=== PATIENT | male | born 1965 | race Caucasian/White ===

== ENCOUNTER 2017-02-24 20:46 | Inpatient (IN) | payer BC, OTHER ==
[~2017-02-24] VITALS: Ht 170.2 cm; Wt 104.7 kg
[2017-02-24] MEDS ORDERED: ASPIRIN 325 MG TAB PO STA (21:28)
[2017-02-24] MEDS ORDERED: NICARDipine HCL 30 MG CAPSULE PO ONE (21:30)
--- NOTE | 2017-02-24 21:39 | ERA ---
ER Documentation Chief Complaint Date/Time DATE: 02/24/17 TIME: 21:35 Chief Complaint CP that started 30 mins ago HPI This a 51-year-old male with a history of hypertension who came in for palpitations and tightness in his anterior neck bilaterally and trapezius area. The patient states that he was watching TV and his son gave him an iced coffee. After he drank this about 15 minutes later he began having the symptoms. The patient checked his blood pressure at home and was 190/110. He does admit to not taking his prescription medication like he should. He had no shortness of breath and no history of atrial fibrillation the said he had a irregular heartbeat 20 years ago which sounds like he was having PVCs. Currently he is asymptomatic after being put the ED room ROS All systems reviewed and are negative except as per history of present illness. Medications Home Meds No Active Prescriptions or Reported Meds Allergies Allergies: Coded Allergies: No Known Allergy (Unverified , 01/23/13) PMhx/Soc History of Surgery: No Anesthesia Reaction: No Hx Neurological Disorder: No Hx Respiratory Disorders: No Hx Cardiac Disorders: No Hx Psychiatric Problems: No Hx Miscellaneous Medical Probl: No Hx Alcohol Use: No Hx Substance Use: No Hx Tobacco Use: No FmHx Family History: No coronary disease Physical Exam Vitals Vital Signs Date Time Temp Pulse Resp B/P Pulse Ox O2 Delivery O2 Flow Rate FiO2 02/24/17 22:35 98.3 74 14 134/88 97 Room Air 02/24/17 20:49 98.7 90 16 187/94 99 Physical Exam Const: Well-developed, well-nourished Head: Atraumatic, normocephalic Eyes: Normal Conjunctiva, PERRLA, EOMI, normal sclera, no nystagmus ENT: Normal External Ears, Nose and Mouth, moist mucus membranes. Neck: Full range of motion. No meningismus, no lymphadenopathy. Resp: Clear to auscultation bilaterally, no wheezing, rhonchi, rales Cardio: Regular rate and rhythm, no murmurs, S1 S2 present Abd: Soft, non tender x 4, non distended. Normal bowel sounds, no guarding or rebound, no pulsitile abdominal masses or bruits Skin: No petechiae or rashes, no ecchymosis , no maculopapular rash Back: No midline or flank tenderness Ext: No cyanosis, or edema, FROM x 4, normal inspection, neurovascularly intact x 4 Neur: Awake and alert, STR 5/5 x 4, sensation intact x 4, no focal findings, cerebellum intact Psych: Normal Mood and Affect Result Diagram: 02/24/17214402/24/172144 Results 24 hrs Laboratory Tests Test 02/24/17 21:45 White Blood Count 8.610^3/ul Red Blood Count 5.0410^6/ul Hemoglobin 16.6g/dl Hematocrit 45.9% Mean Corpuscular Volume 91.1fl Mean Corpuscular Hemoglobin 32.9pg Mean Corpuscular Hemoglobin Concent 36.2g/dl Red Cell Distribution Width 12.2% Platelet Count 50949^3/UL Mean Platelet Volume 10.3fl Neutrophils % 42.1% Lymphocytes % 47.7% Monocytes % 7.0% Eosinophils % 2.4% Basophils % 0.7% Nucleated Red Blood Cells % 0.0/100WBC Neutrophils # (Manual) 3.610^3/ul Lymphocytes # 4.110^3/ul Monocytes # 0.610^3/ul Eosinophils # 0.210^3/ul Basophils # 0.110^3/ul Nucleated Red Blood Cells # 0.010^3/ul Sodium Level 144mmol/L Potassium Level 3.5mmol/L Chloride Level 105mmol/L Carbon Dioxide Level 27mmol/L Anion Gap 16 Blood Urea Nitrogen 13mg/dl Creatinine 1.02mg/dl Glucose Level 113mg/dl Calcium Level 9.6mg/dl Troponin I < 0.012ng/ml Current Medications Medications (Trade) Dose Ordered Sig/Humberto Route PRN Reason Start Time Stop Time Status Last Admin Dose Admin Aspirin (Aspirin) 325 mg ONCE STAT PO 02/24/17 21:28 02/24/17 21:30 DC 02/24/17 21:35 Nicardipine HCl (Cardene) 30 mg ONCE ONCE PO 02/24/17 21:30 02/24/17 21:31 DC 02/24/17 21:35 Procedures/MDM EKG: Rate/Rhythm: Atrial fibrillation with rapid ventricular responseQRS , ST, QT: NORMAL, QRS, QT] Impression: A. fib with RVR] EKG: Rate/Rhythm: Normal Sinus Rhythm,NL intervals QRS, ST, QT: NORMAL CT, QRS, QT] Impression: NORMAL EKG PROCEDURE: XR Chest. CLINICAL INDICATION: Chest pain TECHNIQUE: Single AP portable chest. COMPARISON: 10/04/2014 Chest x-ray FINDINGS: The cardiomediastinal silhouette is within normal limits of size. The lungs are clear without pleural effusion or focal consolidation. No pneumothorax. The osseous structures and soft tissues are unremarkable. IMPRESSION: 1. No evidence for active cardiopulmonary disease. RPTAT:AAJJ Derek Boyce Physician Date Time Electronically viewed and signed by Derek Boyce Physician on 02/24/2017 22:57 ALCIDES/ CC: EDIE COELHO DO Patient has spontaneously converted to normal sinus rhythm. The patient may have gone into A. fib after having a coffee. Also could have been because of the hypertension on top of the caffeine. Says he felt that way for 30 minutes but is unknown for sure how long he was in A. fib. He was having symptoms of tightness in his anterior neck trapezius area which could be his anginal equivalent Patient's symptoms are concerning for cardiac cause will require inpatient workup and continuous monitoring. Further w/u for ischemia, arrhythmia, PE or dissection will be deferred to the inpatient team. Accepting Care Team: Current data and ongoing care discussed. Time: Time of admission Primary Provider: [XOXOXO] Consulting: [XOXOXO] Outstanding Data: none Departure Diagnosis: Primary Impression: Chest pain Qualified Code: R07.9 - Chest pain, unspecified type Additional Impression: Atrial fibrillation with rapid ventricular response Condition: Stable EDIE COELHO DO Feb 24, 2017 21:39
[2017-02-24 22:03] LABS: BASOPHIL # 0.1 10^3/ul (0.0-0.1); BASOPHILS % 0.7 % (0.0-2.0); EOSINOPHILS # 0.2 10^3/ul (0.0-0.5); EOSINOPHILS % 2.4 % (0.0-7.0); HEMATOCRIT 45.9 % (42.0-52.0); HEMOGLOBIN 16.6 g/dl (14.0-18.0); LYMPHOCYTES # 4.1 10^3/ul (0.8-2.9); LYMPHOCYTES % 47.7 % (15.0-51.0); MEAN CORPUSCULAR HEMOGLOBIN 32.9 pg (29.0-33.0); MEAN CORPUSCULAR HGB CONC 36.2 g/dl (32.0-37.0); MEAN CORPUSCULAR VOLUME 91.1 fl (82.0-101.0); MEAN PLATELET VOLUME 10.3 fl (7.4-10.4); MONOCYTE # 0.6 10^3/ul (0.3-0.9); NEUTROPHILS % 42.1 % (39.0-77.0); PLATELET COUNT 271 10^3/UL (140-415); RED BLOOD COUNT 5.04 10^6/ul (4.70-6.10); RED CELL DISTRIBUTION WIDTH 12.2 % (11.5-14.5); WHITE BLOOD COUNT 8.6 10^3/ul (4.8-10.8)
[2017-02-24 22:20] LABS: ANION GAP 16 (8-16); BLOOD UREA NITROGEN 13 mg/dl (7-20); CALCIUM 9.6 mg/dl (8.4-10.2); CARBON DIOXIDE 27 mmol/L (21-31); CHLORIDE 105 mmol/L (97-110); CREATININE 1.02 mg/dl (0.61-1.24); GLUCOSE 113 mg/dl (70-220); POTASSIUM 3.5 mmol/L (3.5-5.1); SODIUM 144 mmol/L (135-144)
[2017-02-24 22:32] LABS: TROPONIN-I < 0.012 ng/ml (0.00-0.12)
--- NOTE | 2017-02-24 22:57 | RADRPT ---
PROCEDURE: XR Chest. CLINICAL INDICATION: Chest pain TECHNIQUE: Single AP portable chest. COMPARISON: 10/04/2014 Chest x-ray FINDINGS: The cardiomediastinal silhouette is within normal limits of size. The lungs are clear without pleur al effusion or focal consolidation. No pneumothorax. The osseous structures and soft tissues are unr emarkable. IMPRESSION: 1. No evidence for active cardiopulmonary disease. RPTAT:AAJJ Derek Boyce Physician Date Time Electronically viewed and signed by Derek Boyce Physician on 02/24/2017 22:57 ALCIDES/
[2017-02-25] VITALS (14 sets, daily range): BP systolic 124–148; BP diastolic 68–78; PULSE 40–56; RESP 18–20; TEMP 98.7; Ht 170.2 cm; Wt 104.7 kg
[2017-02-25] MEDS ORDERED: ACETAMINOPHEN 325 MG TAB PO PRN ×2 (00:30→05:30)
[2017-02-25] MEDS ORDERED: ONDANSETRON 4 MG INJ IV PRN ×2 (00:30→05:30)
[2017-02-25] MEDS ORDERED: LISI10TA2 PO (02:13)
--- NOTE | 2017-02-25 05:31 | HP ---
Date/Time of Note Date/Time of Note DATE: 02/25/17 TIME: 05:21 Assessment/Plan VTE Prophylaxis VTE Prophylaxis Intervention: heparin Lines/Catheters [facility] Saline Lock Assessment/Plan Assessment/Plan 1. A-fib with RVR: Currently in sinus s/p po Cardizem. Likely induced by coffee. -Currently bradycardic and as such no AV john blockers for now. He will be started on aspirin. Supplemental oxygen given possible chest pain. -Will trend troponin -Check thyroid panel -2D echo -Cardiology consult as needed 2. Chest pain/shoulder pain: Rule out ACS -See #1 3. Hypertensive urgency: BP better controlled now -Continue home lisinopril. Adjust antihypertensives as needed HPI/ROS Admit Date/Time Admit Date/Time Feb 25, 2017 at 00:04 Hx of Present Illness This is a 51-year-old male with a history of hypertension who presented to the emergency department complaining of palpitations and upper chest/shoulder pain. Pain occurred while he was sitting at home watching TV and started 15-20 minutes after drinking iced coffee. Denied a history of arrhythmia. When he presented to the ER, he was found to be in rapid A-fib. He converted to sinus after he was given 30 mg of Cardizem orally. Currently his heart rate is in the low 50s. Basic lab including troponin are negative. Chest x-ray was no active disease. . PMH/Family/Social Past Medical History Medical History: hypertension Social History Alcohol Use: none Smoking Status: Former smoker Drug Use: none Exam/Review of Systems Vital Signs Vitals Vital Signs Date Time Temp Pulse Resp B/P Pulse Ox O2 Delivery O2 Flow Rate FiO2 02/25/17 04:11 51 02/25/17 02:15 98.1 20 146/77 98 Room Air Exam Constitutional: alert, oriented, well developed Head: atraumatic, normocephalic Eyes: EOMI, PERRL Respiratory: clear to auscultation, normal air movement Cardiovascular: other (Bradycardic with regular rhythm) Gastrointestinal: non-tender, soft Extremities: normal pulses Labs Result Diagram: 02/24/17214402/24/172144 Medications Medications Current Medications Lisinopril (Zestril) 10 mg DAILY PO ; Start 02/25/17 at 09:00; Status UNV Heparin Sodium (Porcine) (Heparin (5000 Units/0.5 ml)) 5,000 unit BID SC ; Start 02/25/17 at 09:00; Status UNV Aspirin (Aspirin) 325 mg DAILY PO ; Start 02/25/17 at 09:00; Status UNV Ondansetron HCl (Zofran Inj) 4 mg Q6H PRN IV NAUSEA AND/OR VOMITING; Start 02/25 at 05:30; Status UNV Acetaminophen (Tylenol Tab) 650 mg Q6H PRN PO PAIN AND OR ELEVATED TEMP; Start 02/25/17 at 05:30; Status UNV DECLAN PEREZ MD Feb 25, 2017 05:31
[2017-02-25 08:07] LABS: BASOPHIL # 0.1 10^3/ul (0.0-0.1); BASOPHILS % 0.6 % (0.0-2.0); EOSINOPHILS # 0.3 10^3/ul (0.0-0.5); EOSINOPHILS % 2.7 % (0.0-7.0); HEMATOCRIT 44.5 % (42.0-52.0); HEMOGLOBIN 15.5 g/dl (14.0-18.0); LYMPHOCYTES % 42.6 % (15.0-51.0); MEAN CORPUSCULAR HEMOGLOBIN 31.3 pg (29.0-33.0); MEAN CORPUSCULAR HGB CONC 34.8 g/dl (32.0-37.0); MEAN CORPUSCULAR VOLUME 89.9 fl (82.0-101.0); MEAN PLATELET VOLUME 10.4 fl (7.4-10.4); MONOCYTE # 0.7 10^3/ul (0.3-0.9); MONOCYTES % 7.2 % (0.0-11.0); NEUTROPHILS % 46.4 % (39.0-77.0); PLATELET COUNT 251 10^3/UL (140-415); RED BLOOD COUNT 4.95 10^6/ul (4.70-6.10); RED CELL DISTRIBUTION WIDTH 12.3 % (11.5-14.5); WHITE BLOOD COUNT 9.5 10^3/ul (4.8-10.8)
[2017-02-25 08:29] LABS: ANION GAP 14 (8-16); BLOOD UREA NITROGEN 12 mg/dl (7-20); CALCIUM 9.1 mg/dl (8.4-10.2); CARBON DIOXIDE 25 mmol/L (21-31); CHLORIDE 105 mmol/L (97-110); CHOL/HDL RATIO 6.2 RATIO; CHOLESTEROL 200 mg/dl (100-200); CREATININE 0.91 mg/dl (0.61-1.24); GLUCOSE 95 mg/dl (70-220); HDL CHOLESTEROL 32 mg/dl (28-71); POTASSIUM 3.5 mmol/L (3.5-5.1); SODIUM 140 mmol/L (135-144); TRIGLYCERIDES 188 mg/dl (0-149)
[2017-02-25 08:54] LABS: TROPONIN-I < 0.012 ng/ml (0.00-0.12)
[2017-02-25] MEDS: LISINOPRIL 10 MG TAB PO SCH (09:54)
[2017-02-25] MEDS: ASPIRIN 325 MG TAB PO SCH (09:54)
[2017-02-25] MEDS: HEPARIN 5,000 UNIT/0.5 ML VIAL SC SCH ×2 (09:56→21:54)
--- NOTE | 2017-02-25 11:21 | CONS ---
DATE OF ADMISSION: 02/25/2017 DATE OF CONSULTATION: 02/25/2017 HISTORY OF PRESENT ILLNESS: Mr. Lambert is a 51-year-old gentleman who presents to [facility] with sensation of palpitations and associated shoulder pain. He reports that the pain occurred approximately 15-20 minutes after drinking part of an ice coffee. He also reports that he has not taken his hypertension medications in the last several days because it was giving him the leg cramps. In the emergency room department he converted to sinus rhythm. The entire episode lasted approximately 1 hour. He received a single dose of Cardizem. Since conversion he is noted to be bradycardic in the 40s and 50s. Currently he is chest pain-free and comfortable. PAST MEDICAL HISTORY: Hypertension and hypercholesterolemia. MEDICATIONS: Lisinopril, aspirin, Zofran and Tylenol. PHYSICAL EXAMINATION: GENERAL APPEARANCE: He is in no distress. VITAL SIGNS: Temperature 97.7, pulse 46, blood pressure 124/68, oxygen saturation 97 percent. NECK: No jugular venous distention. LUNGS: Clear to auscultation bilaterally. HEART: Regular rate and rhythm. ABDOMEN: Soft, nontender, nondistended. LABORATORY: Unremarkable with the exception of elevated triglycerides. Troponins are negative x2. TSH is within normal limits. EKG shows sinus bradycardia, initial EKG showed atrial fibrillation with rapid ventricular rate. Chest x-ray, no evidence of disease. Echocardiogram pending. IMPRESSION AND PLAN: Mr. Lambert is a 51-year-old gentleman with new onset of paroxysmal atrial fibrillation with new episode of the atrial fibrillation, possibly exacerbated by uncontrolled hypertension as he has been off his antihypertensive medications. His CHADS VASc is 1 and it is reasonable to consider anticoagulation. He is scheduled for echocardiogram. This will help assess whether he has any associated structural abnormalities. Consideration for outpatient stress test is possible given the chest pain with atrial fibrillation and rapid rates. Dictated By: Jaxson Champion MD /cat/yamile /Document#: [id number]
--- NOTE | 2017-02-25 13:53 | QN ---
Documentation Comment S: Patient seen and examined. Family at bedside and all questions addressed and answered. Patient denies further episodes of palpitations. Denies any chest pain, shortness of breath, nausea, vomiting, or abdominal issues. Has not been taking his hypertensive medications for the past few days and when checked BP at home states SBP was 190s. O: VS T97.7, HR 46, BP 124/68, O2 97% RA Constitutional: awake, alert, in no distress. Neck: No jugular venous distention. Lungs: Clear to auscultation bilaterally. no wheezes, rales, or rhonchi CVS: Regular rate and rhythm. No murmurs Abdomen: Soft, nontender, nondistended. A/P 1. New onset afib with RVR - Cardiology on board and recommendations appreciated - CHADS score of 1 which warrants anticoag if patient agreeable - ECHO results pending - Currently in sinus rhythm, converted after dose of cardizem. HR in the 50s - may be considered for stress as outpatient based on ECHO findings 2. Hypertension - Continue on antihypertensives and monitor 3. b/l shoulder pain - Nonreproducible and denies any recent heavy lifting or trauma. Will continue to monitor FABIAN MOTTA MD Feb 25, 2017 13:53
--- NOTE | 2017-02-25 13:57 | RADRPT ---
Echocardiogram Report Patient Name: ARIA PRICE Gender: Male Date: 1965 Study Date: 25-Feb-2017 Director Emergency: Roger Gurrola [facility] Location: 5560 Ref. Physician: DECLAN PEREZ Quality: Adequate Procedures: Transthoracic echocardiogram with complete 2D, M-Mode, and doppler examination. Indications: Atrial Fibrillation. Chest Pain. 2D/M Mode Doppler Measurement Value Normal Ranges Measurement Value Normal Ranges LVIDd 2D 4.9 3.5 - 5.6 cm AV Peak Jameson 1.3 m/sec LVIDs 2D 2.4 2.1 - 4.1 cm AV Peak PG 7.0 mmHg FS 2D 51.6 % LVOT Peak Jameson 1.2 m/sec LVPWd 2D 0.9 0.6 - 1.1 cm LVOT Peak PG 5.0 mmHg IVSd 2D 1.0 0.6 - 1.1 cm MV E Peak Jameson 0.6 m/sec IVS/LVPW 2D 1.2 MV A Peak Jameson 0.7 m/sec AoR Diam 2D 2.5 2.0 - 3.7 cm MV E/A 0.9 LA/Ao 2D 1 0 - 1 MV Decel Time 236 msec EDV 2D 121.0 cm3 MV E/A 0.9 ESV 2D 13.7 cm3 TR Peak Jameson 2.3 m/sec LA Dimen 2D 3.1 2.3 - 4.0 cm TR Peak PG 20.0 mmHg RVSP 30.0 mmHg Findings Left Ventricle: Normal left ventricular systolic function. Normal left ventricular cavity size. Normal left ventricular wall thickness. Ejection fraction is visually estimated at 55 %. Right Ventricle: Normal right ventricular size. Normal right ventricular systolic function. Left Atrium: The left atrium is normal in size. Right Atrium: The right atrium is normal in size. Mitral Valve: Normal appearance and function of the mitral valve with trace physiologic regurgitation. Aortic Valve: No significant aortic stenosis or insufficiency. Aortic cusps appear mildly calcified. Tricuspid Valve: Normal appearance of the tricuspid valve. Estimated peak PA systolic pressure 30 mmHg. There is trace tricuspid regurgitation. Pulmonic Valve: Pulmonic valve not well visualized. Pericardium: Normal pericardium with no significant pericardial effusion. Aorta: Normal aortic root. IVC: Dilated IVC with respiratory collapse consistent with elevated right atrial pressure. Conclusions 1.Normal left ventricular systolic function. Normal left ventricular cavity size. Normal left ventricular wall thickness. Ejection fraction is visually estimated at 55 %. Electronically Signed By: Jaxson Champion 25-Feb-2017 13:56:38 -0700 Patient Name: ARIA PRICE Study Date: 25-Feb-2017 [id number]
[2017-02-26] VITALS (8 sets, daily range): BP systolic 132–156; BP diastolic 73–86; PULSE 40–52; RESP 18–20
--- NOTE | 2017-02-26 07:53 | PN ---
Date/Time of Note Date/Time of Note DATE: 02/26/17 TIME: 07:50 Assessment/Plan VTE Prophylaxis VTE Prophylaxis Intervention: heparin Lines/Catheters IV [facility] Saline Lock Urinary Cath still in place: No Assessment/Plan Chief Complaint/Hosp Course 1. p AFIB with RVR: converted back to NSR. pt states that this is the only time he has had it. 2. ? chest pain during Afib with RVR: At this point patient in sinus bradycardia and denies any chest pain or pressure to me. Patient also denies any chest pain at the time of the A. fib to me anesthetic was only having heart palpitation. 3. SINUS Bradycardia: Symptomatic. 4. Hypertension: Continue ALEXEI inhibitor. dc planning when ok with IM. pt was advised to follow up with his PCP. consider outpt stress testing if he has any episodes of chest pain Thank you. crystal valle MD Problems: Subjective 24 Hr Interval Summary Free Text/Dictation cardiology follow up note: The staff emergency was reviewed. Patient remained mostly in sinus bradycardia. Denies any syncope presyncope to me. Patient denies any chest pain or pressure to me. As stated on Saturday night he was just feeling his heart pounding but no chest pain. No bleeding is reported. OBJECTIVE: General: no acute distress HEENT: NC/AT. pupils are equal. round. NECK: NO JVD. no stridor. CV: BRADYCARDIC. systolic murmur; no gallop or rubs. PULM: no wheezing or rhonchi. GI: SOFT, NT, ND, no rebound or guarding Extremity: trace B/L LE edema. no clubbing. neuro: awake and alert, OX3. Psych: calm and pleasant rectal: deferred : normal Exam/Review of Systems Vital Signs Vitals Vital Signs Date Time Temp Pulse Resp B/P Pulse Ox O2 Delivery O2 Flow Rate FiO2 02/26/17 05:09 40 02/26/17 03:56 98.2 20 156/86 96 02/25/17 05:00 Room Air Intake and Output 02/25/17 02/25/17 02/26/17 14:59 22:59 06:59 Intake Total 450 ml 400 ml Balance 450 ml 400 ml Results Result Diagram: 02/25/17 0708 02/25/17 0709 Results 24 hrs Laboratory Tests Test 02/25/17 11:38 Troponin I < 0.012 Medications Medications Current Medications Lisinopril (Zestril) 10 mg DAILY PO Last administered on 02/25/17 09:54; Admin Dose 10 MG; Start 02/25/17 at 09:00 Heparin Sodium (Porcine) (Heparin (5000 Units/0.5 ml)) 5,000 unit BID SC Last administered on 02/25/17 21:54; Admin Dose 5,000 UNIT; Start 02/25/17 at 09:00 Aspirin (Aspirin) 325 mg DAILY PO Last administered on 02/25/17 09:54; Admin Dose 325 MG; Start 02/25/17 at 09:00 Ondansetron HCl (Zofran Inj) 4 mg Q6H PRN IV NAUSEA AND/OR VOMITING; Start 02/25 at 05:30 Acetaminophen (Tylenol Tab) 650 mg Q6H PRN PO PAIN AND OR ELEVATED TEMP; Start 02/25/17 at 05:30 CRYSTAL VALLE MD Feb 26, 2017 07:53
[2017-02-26] MEDS ORDERED: POTASSIUM CHLORIDE (SR) 8 MEQ CAP PO ONE (08:00)
[2017-02-26] MEDS: LISINOPRIL 10 MG TAB PO SCH (09:02)
[2017-02-26] MEDS: ASPIRIN 325 MG TAB PO SCH (09:03)
[2017-02-26] MEDS: HEPARIN 5,000 UNIT/0.5 ML VIAL SC SCH (09:04)
--- NOTE | 2017-02-26 10:26 | PDOCDIS ---
Discharge Instructions DIAGNOSIS Discharge Diagnosis Acute atrial fibrillation with RVR secondary to uncontrolled hypertension CONDITION Patient Condition: Good HOME CARE INSTRUCTIONS: Diet Instructions: Reduced SodiumSpecial Diet: REGULAR ACTIVITY: Activity Restrictions: No Restrictions FOLLOW UP/APPOINTMENTS Follow-up Plan - Please follow up with you Primary care physician within the next 2 weeks - Take your blood pressure medications as prescribed - If experiencing pain in knees, take Tylenol 650mg every 4-6 hours but not to exceed 3000mg - If you are experiencing heart palpitations again, call your PCP or return to the ED. Lipid panel is as following: Cholesterol 200 TG 188 (goal less than 150) LDL 130 (goal less than 100) HDL 32 FABIAN MOTTA MD Feb 26, 2017 10:26
[2017-02-26] MEDS ORDERED: ACET325T40 PO (10:30)
[2017-02-26] MEDS ORDERED: LISI10TA2 PO (10:30)
--- NOTE | 2017-02-26 10:33 | PN ---
Date/Time of Note Date/Time of Note DATE: 02/26/17 TIME: 10:31 Assessment/Plan VTE Prophylaxis VTE Prophylaxis Intervention: heparin Lines/Catheters IV [facility] Saline Lock Urinary Cath still in place: No Assessment/Plan Assessment/Plan 1. A-fib with RVR- resolved - Currently bradycardic in sinus rhythm s/p PO Cardizem - No further episodes of afib and denies any cardiac symptoms - Most likely secondary to uncontrolled HTN in addition to coffee - Counseled patient extensively about taking BP medication to avoid further episodes of arrhythmias 2. B/L knee pain - advised to take Tylenol 650mg 4-6 hour daily rather than ibuprofen 3. Hypertensive urgency - BP better controlled on Lisinopril - started on aspirin - was taking atorvastatin prior to admission but was experiencing severe leg cramping 4. Disposition - stable for discharge home - advised to follow up with PCP in 1-2 weeks - if chest pain returns, will need outpatient stress test per cardiology I spent >30mins discuss patients medical condition as well as counseling the patient the risk of having uncontrolled hypertension. Proper diet plan as well as improving exercise routine was discussed as well with patient as well as at bedside. Subjective 24 Hr Interval Summary Free Text/Dictation Patient seen and examined at bedside. Doing well and no further complaints of palpitations. Denies SOB, dizziness, nausea, vomiting, or chest pain. Patient states he is ready to go home. Exam/Review of Systems Vital Signs Vitals Vital Signs Date Time Temp Pulse Resp B/P Pulse Ox O2 Delivery O2 Flow Rate FiO2 02/26/17 08:10 97.9 42 18 132/73 97 02/25/17 05:00 Room Air Intake and Output 02/25/17 02/25/17 02/26/17 15:00 23:00 07:00 Intake Total 450 ml 400 ml Balance 450 ml 400 ml Exam General: NAD, awake and alert HEENT: NC/AT. pupils are equal. round. NECK: NO JVD. no stridor. CV: Bradycardic, regular rhythm. systolic murmur; no gallop or rubs. PULM: no wheezing or rhonchi. clear to auscultation bilaterally GI: SOFT, NT, ND, no rebound or guarding Extremity: trace B/L LE edema. no clubbing. neuro: awake and alert, OX3. Results Result Diagram: 02/25/17 0708 02/25/17 0709 Results 24 hrs Laboratory Tests Test 02/25/17 11:38 Troponin I < 0.012 Medications Medications Current Medications Lisinopril (Zestril) 10 mg DAILY PO Last administered on 02/26/17 09:02; Admin Dose 10 MG; Start 02/25/17 at 09:00 Heparin Sodium (Porcine) (Heparin (5000 Units/0.5 ml)) 5,000 unit BID SC Last administered on 02/26/17 09:04; Admin Dose 5,000 UNIT; Start 02/25/17 at 09:00 Aspirin (Aspirin) 325 mg DAILY PO Last administered on 02/26/17 09:03; Admin Dose 325 MG; Start 02/25/17 at 09:00 Ondansetron HCl (Zofran Inj) 4 mg Q6H PRN IV NAUSEA AND/OR VOMITING; Start 02/25 at 05:30 Acetaminophen (Tylenol Tab) 650 mg Q6H PRN PO PAIN AND OR ELEVATED TEMP; Start 02/25/17 at 05:30 FABIAN MOTTA MD Feb 26, 2017 10:33
[2017-02-26] MEDS ORDERED: ASPI325T4 PO (10:49)
--- NOTE | 2017-02-26 11:59 | DS ---
Date/Time of Note Date/Time of Note DATE: 02/26/17 TIME: 11:59 Discharge Summary Admission/Discharge Info Admit Date/Time Feb 25, 2017 at 00:04 Discharge Date/Time Feb 26, 2017 Discharge Diagnosis Acute atrial fibrillation with RVR secondary to uncontrolled hypertension Patient Condition: Good Consults Cardiology Hx of Present Illness This is a 51-year-old male with a history of hypertension who presented to the emergency department complaining of palpitations and upper chest/shoulder pain. Pain occurred while he was sitting at home watching TV and started 15-20 minutes after drinking iced coffee. Denied a history of arrhythmia. When he presented to the ER, he was found to be in rapid A-fib. He converted to sinus after he was given 30 mg of Cardizem orally. Currently his heart rate is in the low 50s. Basic lab including troponin are negative. Chest x-ray was no active disease. . Hospital Course Patient was admitted to telemetry and Cardiology was consulted. Patient had recently stopped his blood pressure medications since believed it was causing bilateral knee swelling and calf cramping. Patient states he had SBP in 190s prior to coming to the hospital. He remained in sinus rhythm and was bradycardiac but not symptomatic. Troponins were negative. Initial EKG showed atrial fibrillation but repeat showed sinus bradycardia. Patient was started on aspirin due to CHADS score of 1 and BP was well controlled while on Lisinopril 10mg. Patient did not have any further episodes of arrhythmias and was advised to follow up with PCP or return to ED for possible stress test if symptoms returned. Patient was counseled about medication compliance as well as diet modification. Patient condition improved and was stable for discharge home. Patient was also cleared for safe discharge by Cardiology as well. ECHO Normal left ventricular systolic function. Normal left ventricular cavity size. Normal left ventricular wall thickness. Ejection fraction is visually estimated at 55 %. Home Meds Active Scripts Aspirin (Aspirin Lite-Coat) 325 Mg Tablet, 81 MG PO DAILY for 30 Days, #30 TAB take one tablet by mouth daily Prov:FABIAN MOTTA MD 02/26/17 Acetaminophen (MAPAP) 325 Mg Tablet, 650 MG PO Q6H Y for PAIN AND OR ELEVATED TEMP for 30 Days, #90 TAB Take one tablet by mouth every 4-6 hours as needed for pain Prov:FABIAN MOTTA MD 02/26/17 Lisinopril* (Lisinopril*) 10 Mg Tablet, 10 MG PO DAILY for 30 Days, #30 TAB Take one tablet by mouth daily for high blood pressure Prov:FABIAN MOTTA MD 02/26/17 Follow-up Plan Patient was informed to follow up with PCP in 1-2 weeks. Continue taking Lisinopril 10mg daily and if experiencing side effects advised to discuss with PCP before stopping Advised patient to follow heart healthy diet and improve exercise regime. Primary Care Provider Paola Anne Time spent on discharge: > 30 minutes FABIAN MOTTA MD Feb 26, 2017 11:59
== END 2017-02-26 12:22 | disposition home or self-care (01) | DRG 310 ==
LOC: E/R 20:46 → MS4 02-25 00:04
PROVIDERS: ADMIT Internal Medicine; ATTEND Internal Medicine
DX: I48.91 Unspecified atrial fibrillation (principal); M25.561 Pain in right knee; I16.0 Hypertensive urgency; R07.9 Chest pain, unspecified; E78.00 Pure hypercholesterolemia, unspecified; M25.562 Pain in left knee
CPT/HCPCS: 36415; 71010; 80048; 80061; 83036; 84443; 84484; 85025; 93005; 93306; J1644

== ENCOUNTER 2018-05-03 15:38 | Emergency (ER) | END 2018-05-03 18:50 | disposition home or self-care (01) ==

== ENCOUNTER 2018-08-25 06:47 | Day surgery (SDC) | payer OTHER ==
[~2018-08-25] VITALS: Ht 172.7 cm; Wt 93.6 kg
[~2018-08-25 06:47] MED LIST: ACET325T40 PO; ASPI325T29 PO; LISI10TA2 PO; NAPR-985 PO
[2018-08-25 08:06] VITALS: Ht 172.7 cm; Wt 93.6 kg
[2018-08-25] MEDS ORDERED: ZANTAC (08:09)
[2018-08-25] MEDS ORDERED: OMEPRAZOLE (08:09)
[2018-08-25 08:47] VITALS: BP 188/84; PULSE 53; RESP 19
--- NOTE | 2018-08-25 08:48 | PREAC ---
Date/Time of Note Date/Time of Note DATE: 08/25/18 TIME: 08:48 Anesthesia Eval and Record Evaluation Time Pre-Procedure Interview DATE: 08/25/18 TIME: 08:48 Age 53 Sex male NPO: 8 hrs Preoperative diagnosis screening, GERD Planned procedure EGD< colonoscopy Past Medical History Past Medical History: Includes Cardio: HTN Musculoskeletal: Osteoarthritis GI: GERD, Obesity Surgery & Anesthesia Issues No known issue Meds Anticoagulation: No Beta Zeeshan within 24 hr: No Reason Beta Zeeshan not given: Pt. not on B-Zeeshan Active Scripts Aspirin (Aspirin Lite-Coat) 325 Mg Tablet, 81 MG PO DAILY for 30 Days, #30 TAB take one tablet by mouth daily Prov:FABIAN MOTTA MD 02/26/17 Acetaminophen (MAPAP) 325 Mg Tablet, 650 MG PO Q6H PRN for PAIN AND OR ELEVATED TEMP MDD 3000mg for 30 Days, #90 TAB Take one tablet by mouth every 4-6 hours as needed for pain Prov:FABIAN MOTTA MD 02/26/17 Lisinopril* (Lisinopril*) 10 Mg Tablet, 10 MG PO DAILY for 30 Days, #30 TAB Take one tablet by mouth daily for high blood pressure Prov:FABIAN MOTTA MD 02/26/17 Reported Medications [Omeprazole ] No Conflict Check 08/25/18 [Zantac] No Conflict Check 08/25/18 Discontinued Scripts Naproxen* (Naprosyn*) 500 Mg Tablet, 500 MG PO BID PRN for PAIN AND/OR INFLAMMATION, #10 TAB Prov:RENO JOHNSON MD 05/03/18 Meds reviewed: Yes Allergies Coded Allergies: No Known Allergy (Unverified , 08/25/18) Allergies Reviewed: Yes Labs/Studies Labs Reviewed: Reviewed by anesthesiologist test: N/A Pre-procedure Exam Airway: Adequate mouth opening, Adequate thyromental dist Mallampati: Mallampati II Teeth: Normal Lung: Normal Heart: Normal ASA Physical Status ASA physical status: 2 Emergency: None Pre-operative Attestations Prior to commencing anesthesia and surgery, the patient was re-evaluated, there was verification of: *The patient's identity *The results of appropriate recent lab work and preoperative vital signs *The above evaluation not changing prior to induction *Anesthetic plan, risk benefits, alternative and complications discussed with patient/family; questions answered; patient/family understands, accepts and wishes to proceed. ELLIOTT BALES Aug 25, 2018 08:48
[2018-08-25] MEDS ORDERED: ONDANSETRON 4 MG INJ IV PRN (09:00)
[2018-08-25] MEDS ORDERED: ACETAMINOPHEN 500 MG TAB PO PRN (09:00)
[2018-08-25] MEDS ORDERED: ALBUTEROL 0.083% (NEB) 2.5 MG/3 ML AMP HHN PRN (09:00)
[2018-08-25] MEDS ORDERED: FENTAnyl 50 MCG/ML VIAL IV PRN (09:00)
[2018-08-25] MEDS ORDERED: PROPOFOL 60 ML ONE (09:02)
[2018-08-25] MEDS ORDERED: LIDOCAINE 2% (SDV) 5 ML INJ ONE (09:02)
--- NOTE | 2018-08-25 09:35 | PAC ---
Date/Time of Note Date/Time of Note DATE: 08/25/18 TIME: 09:32 Post-Anesthesia Notes Post-Anesthesia Note Last documented vital signs Vital Signs Date Temp Pulse Resp B/P (MAP) Pulse Ox O2 O2 Flow FiO2 Time Delivery Rate 08/25/18 98.2 98 53 58 19 18 188/84 98 99 Room 08:47 093 [phone] 144 Air NC 5L Activity: WNL Respiratory function: WNL Cardiovascular function: WNL Mental status: Baseline Pain reasonably controlled: Yes Hydration appropriate: Yes Nausea/Vomiting absent: Yes ELLIOTT BALES Aug 25, 2018 09:35
[2018-08-25 09:56] VITALS: BP 152/88; RESP 20
== END 2018-08-25 10:15 | disposition home or self-care (01) ==
LOC: GIL 06:47
PROVIDERS: ATTEND Internal Medicine Gastroenterology
DX: Z12.11 Encounter for screening for malignant neoplasm of colon (principal); K64.8 Other hemorrhoids; K21.9 Gastro-esophageal reflux disease without esophagitis; I10 Essential (primary) hypertension; E66.9 Obesity, unspecified; Z68.31 Body mass index [BMI] 31.0-31.9, adult
CPT/HCPCS: 43239; 45378; Z7610; 88305; 88312